=== PATIENT | male | born 1985 | race Caucasian/White ===

== ENCOUNTER 2019-07-13 11:48 | Emergency (ER) | payer OTHER ==
[~2019-07-13] VITALS: Ht 167.6 cm; Wt 100.9 kg
[2019-07-13 11:49] VITALS: TEMP 97.7
[2019-07-13] MEDS ORDERED: MELATONIN1 MG (11:59)
[2019-07-13] MEDS ORDERED: PRINIVIL10 MG PO (11:59)
[2019-07-13 12:16] LABS: BASO % 0.3 % (0.0-2.0); EOS # 0.1 (0.0-0.7); GRAN # 4.1 (1.4-6.5); GRAN % 60.6 % (42.2-75.2); HEMATOCRIT 46.3 % (42.0-52.0); HEMOGLOBIN 16.5 g/dl (13.5-18.0); LYMPH # 2.2 (1.2-3.4); LYMPH % 31.9 % (20.0-51.0); MEAN CELL VOLUME 85 fl (80.0-100.0); MEAN CORPUSCULAR HEMOGLOBIN 30 pg (27.0-31.0); MEAN CORPUSCULAR HGB CONC 36 g/dl (33.0-37.0); MEAN PLATELET VOLUME 11.8 fl (7.4-10.4); MONO # 0.4 (0.1-0.6); MONO % 5.9 % (1.7-9.3); PLATELET COUNT 193 K/mm3 (130-400); RED BLOOD COUNT 5.44 M/mm3 (4.20-5.60); REDCELL DISTRIBUTION WIDTH-CV 12.7 % (11.5-14.5)
[2019-07-13 12:22] LABS: ALANINE AMINOTRANSFERASE 56 U/L (21-72); ALBUMIN 4.5 gm/dL (3.5-5.0); ALKALINE PHOSPHATASE 72 U/L (50-136); ANION GAP 13 mmol/L (7-16); AST,SGOT 29 U/L (15-37); BILIRUBIN,TOTAL 0.5 mg/dL (0.0-1.0); BLOOD UREA NITROGEN 14 mg/dL (9-20); CARBON DIOXIDE 20 mmol/L (22-30); CHLORIDE 107 mmol/L (98-107); CREATININE, serum 0.88 (0.66-1.25); GLUCOSE 103 mg/dL (74-106); LIPASE 76 U/L (23-300); POTASSIUM 3.9 mmol/L (3.4-5.0); SODIUM 140 mmol/L (137-145); TOTAL PROTEIN 7.2 gm/dL (6.4-8.2)
[2019-07-13 12:34] LABS: TROPONIN-I < 0.012 ng/mL (0.000-0.035)
[2019-07-13 12:55] LABS: INR 1.1 (0.8-3.0); PROTHROMBIN TIME 12.5 SECONDS (9.7-12.8)
[2019-07-13] MEDS ORDERED: PROTONIX 40MG T40 MG PO (13:42)
[2019-07-13 16:22] VITALS: BP 124/70; PULSE 54
== END 2019-07-13 16:25 | disposition home or self-care (01) ==
LOC: COL.ER 11:48
PROVIDERS: Emergency Medicine
DX: R07.89 Other chest pain (principal); I10 Essential (primary) hypertension
CPT/HCPCS: J2270; J2405; J7030